=== PATIENT | female | born 1995 | race Caucasian/White ===

== ENCOUNTER 2017-11-07 23:51 | Emergency (ER) | payer OTHER ==
[~2017-11-07] VITALS: Ht 165.1 cm; Wt 104.3 kg
[2017-11-08 00:18] VITALS: BP 155/103
== END 2017-11-08 03:35 | disposition left against medical advice (07) ==
LOC: ER 23:51
DX: T63.301A Toxic effect of unspecified spider venom, accidental (unintentional), initial encounter (principal); W57.XXXA Bitten or stung by nonvenomous insect and other nonvenomous arthropods, initial encounter; Y93.89 Activity, other specified; Y92.89 Other specified places as the place of occurrence of the external cause; Y99.8 Other external cause status